=== PATIENT | male | born 1975 | race Caucasian/White ===

== ENCOUNTER 2016-06-06 12:39 | Emergency (ER) | payer SELFPAY ==
[~2016-06-06] VITALS: Ht 182.9 cm; Wt 90.9 kg
[2016-06-06 12:40] VITALS: BP 164/107; PULSE 80; RESP 12; TEMP 98.1; O2SAT 97
--- NOTE | 2016-06-06 13:18 | PD ---
HPI Chief Complaint: Hypertension Time Seen by Provider: 13:10 Travel History International Travel<30 days: No Contact w/Intl Traveler<30days: No Traveled to known affect area: No History of Present Illness HPI 41-year-old homeless patient comes in with history of headache and reports of hypertension. Patient was seen in the outreach clinic who cannot prescribe medications and instructed to come here. Blood pressure is noted to be 164/ 107. Patient denies any specific neurological complaints other than headache. He has no history of hypertension in the past. No other acute problems. Has no known drug allergies. PFSH Social History Alcohol Use: Yes Tobacco Use: No Substance Use: No Allergies-Medications (Allergen,Severity, Reaction): Coded Allergies: No Known Allergies (Unverified , 06/06/16) Reported Meds & Prescriptions Reported Meds & Active Scripts Active No Active Prescriptions or Reported Medications Review of Systems Except as stated in HPI: all other systems reviewed are Neg General / Constitutional: No: Fever Eyes: No: Visual changes HENT: No: Headaches Cardiovascular: No: Chest Pain or Discomfort Respiratory: No: Shortness of Breath Gastrointestinal: No: Abdominal Pain Genitourinary: No: Dysuria Musculoskeletal: No: Pain Skin: No Rash Neurologic: No: Weakness Psychiatric: No: Depression Endocrine: No: Polydipsia Hematologic/Lymphatic: No: Easy Bruising Physical Exam Narrative GENERAL: Patient appears in no acute distress. He is able to return to the room without difficulty. SKIN: Warm and dry. Color. Normal turgor. HEAD: Atraumatic. Normocephalic. EYES: Pupils equal and round. No scleral icterus. No injection or drainage. ENT: No nasal bleeding or discharge. Mucous membranes pink and moist. NECK: Trachea midline. No JVD. Supple nontender. CARDIOVASCULAR: Regular rate and rhythm. No murmurs gallops or rubs. RESPIRATORY: No accessory muscle use. Clear to auscultation. Breath sounds equal bilaterally. MUSCULOSKELETAL: Extremities without clubbing, cyanosis, or edema. No obvious deformities. NEUROLOGICAL: Awake and alert. No obvious cranial nerve deficits. Motor grossly within normal limits. Five out of 5 muscle strength in the arms and legs. Normal speech. PSYCHIATRIC: Appropriate mood and affect; insight and judgment normal. Data Data Last Documented VS Vital Signs Date Time Temp Pulse Resp B/P Pulse Ox O2 Delivery O2 Flow Rate FiO2 06/06/16 12:40 98.1 80 12 164/107 97 Room Air MDM Medical Decision Making Medical Screen Exam Complete: Yes Emergency Medical Condition: No Differential Diagnosis Hypertension. Headache. Need for primary care physician. Narrative Course A medical screening exam was performed: At the time of evaluation the presenting medical condition was determined not to be of an emergent nature. The patient was given the option of receiving additional care, but declined. Patient was given options for additional community resources from which to obtain care. The Patient Has Been advised to seek medical attention for their presenting complaint. The patient has been advised to return to the ER at any time if an emergent condition develops. Scripts No Active Prescriptions or Reported Meds Condition: Nam Leach Jun 06, 2016 13:18
== END 2016-06-06 13:20 | disposition left against medical advice (07) ==
LOC: NEPB 12:39
DX: R51 Headache (principal); I10 Essential (primary) hypertension; Z59.0 Homelessness
CPT/HCPCS: 99281